=== PATIENT | female | born 1990 | race Caucasian/White ===

== ENCOUNTER 2016-08-16 09:46 | Emergency (ER) | payer SELFPAY ==
[2016-08-16 10:22] VITALS: BP 126/62
[2016-08-16 11:09] LABS: Basophils % (Auto) 0.3 % (0.0-1.8); Eosinophils % (Auto) 0.2 % (0.0-4.3); Hemoglobin 12.5 gm/dl (10.1-14.3); Mean Corpuscular HGB Conc 31 % (30-34); Mean Corpuscular Hemoglobin 29 pg (28-32); Mean Corpuscular Volume 93 fl (79-97); Platelet Count 236 K/mm3 (140-440); Red Cell Distribution Width 14.9 % (13.2-15.2); White Blood Count 14.9 K/mm3 (4.5-11.0)
[2016-08-16 11:21] LABS: Bacteria,Urine 1+ /HPF (Negative); Bilirubin,Urine NEG (Negative); Blood,Urine LG (Negative); Ketones,Urine NEG (Negative); Leukocyte Esterase,Urine NEG (Negative); Mucus,Urine 3+ /HPF; Nitrite,Urine POS (Negative)
[2016-08-16 11:22] LABS: RBC,Urine > 182.0 /HPF (0.0-6.0)
[2016-08-16 12:29] LABS: Amylase 73 units/L (27-131); Anion Gap 18 mmol/L; Blood Urea Nitrogen 7 mg/dL (7-17); Calcium 9.2 mg/dL (8.4-10.2); Carbon Dioxide 30 mmol/L (22-30); Chloride 96.6 mmol/L (98-107); Glucose 97 mg/dL (65-100); Lipase 40 units/L (13-60); Potassium 4.5 mmol/L (3.6-5.0); Sodium 140 mmol/L (137-145)
[2016-08-16] MEDS ORDERED: TORADOL IV ONE (13:17)
[2016-08-16] MEDS ORDERED: NACL ONE (13:29)
--- NOTE | 2016-08-16 13:34 | Emergency Department Report ---
HPI - General Chief Complaint: Abdominal Pain Time Seen by Provider: 08/16/16 13:11 - HPI HPI: Chief complaint: Right upper quadrant pain HPI: Patient is 25-year-old female states for the last 5-6 days she's been having gradually worsening right upper quadrant pain. Patient denies nausea vomiting diarrhea or fever. Patient states it increases with movement. Patient is currently on her menstrual cycle. Patient denies any abdominal surgeries. And patient has no prior medical history. Mode of arrival: [EMS] Source: [Patient] Began: 5-6 days Duration: See above Context: See above Quality: Sharp Severity: 10 out of 10 Improved with: Nothing Worsened with: Movement Associated signs and symptoms: See above ED Past Medical Hx - Past Medical History Previous Medical History?: No - Surgical History Past Surgical History?: No - Social History Smoking Status: Current Every Day Smoker Substance Use Type: Alcohol, Non Opiate Pain - Medications Home Medications: Home Medications Medication Instructions Recorded Confirmed Last Taken Type Ketorolac [Toradol] 10 mg PO Q6H PRN #14 tablet 08/16/16 Unknown Rx ED Review of Systems ROS: Stated complaint: ABD PAIN Other details as noted in HPI ROS Constitutional: No fever ENT: No uri symptoms Cardiovascular: No chest pain Respiratory: No sob or cough GI: No nausea vomiting or diarrhea : No dysuria frequency or urgency, Skin: No rash Neuro: No focal weakness or numbness Psych: No depression Fidencio/lymph: No edema Physical Exam - Physical Exam Vital Signs: Vital Signs 08/16/16 10:10 Temperature 98.9 F Pulse Rate 83 Respiratory 18 Rate Blood Pressure 126/62 O2 Sat by Pulse 96 Oximetry Physical Exam: GENERAL: The patient is well-developed well-nourished. HEENT: Normocephalic. Atraumatic. Extraocular motions are intact. Patient has moist mucous membranes. NECK: Supple. No meningitic signs are noted. There is no adenopathy noted. CHEST/LUNGS: Clear to auscultation. There is no respiratory distress noted. HEART/CARDIOVASCULAR: Regular. There is no tachycardia. There is no gallop rub or murmur. ABDOMEN: Abdomen is soft, tender right upper quadrant. Patient has normal bowel sounds. There is no abdominal distention. Patient's pain significantly increased when she tried to sit up or roll over. SKIN: There is no rash. There is no edema. There is no diaphoresis. NEURO: The patient is awake, alert, and oriented. The patient is cooperative. The patient has no focal neurologic deficits. The patient has normal speech. MUSCULOSKELETAL: There is no tenderness or deformity. There is no limitation range of motion. There is no evidence of acute injury. ED Course Vital Signs 08/16/16 10:10 Temperature 98.9 F Pulse Rate 83 Respiratory 18 Rate Blood Pressure 126/62 O2 Sat by Pulse 96 Oximetry ED Medical Decision Making - Lab Data Result diagrams: 08/16/16 10:34 08/16/16 12:00 Laboratory Tests 08/16/16 10:37 Urine HCG, Qual Negative - Radiology Data Radiology results: report reviewed (CT abdomen shows 2 heterogeneous enhancing nodular lesions in the right hepatic lobe measuring 2.2 and 1.0 cm. Further evaluation with contrast enhanced MRI is recommended. Shoddy reactive lymph nodes are noted. No appendicitis. Right upper quadrant ultrasound shows the lesions to possibly be atypical hemangiomas.) Critical care attestation.: If time is entered above; I have spent that time in minutes in the direct care of this critically ill patient, excluding procedure time. ED Disposition Clinical Impression: Right upper quadrant pain, Liver lesion, right lobe Disposition: DISCHARGED TO HOME OR SELFCARE Is pt being admited?: No Does the pt Need Aspirin: No Condition: Stable Instructions: Abdominal Pain (ED) Additional Instructions: There are several small lesions to your liver that may be benign hemangiomas. The radiologist however recommends that she have an MRI to evaluate them further. There is nothing acute on your tests. I'm going to give you a primary care doctor to follow-up with as well as a evening anchor. Prescriptions: Ketorolac [Toradol] 10 mg PO Q6H PRN #14 tablet PRN Reason: Pain Referrals: PRIMARY CARE, [Primary Care Provider] - 3-5 Days Time of Disposition: 16:22
--- NOTE | 2016-08-16 14:16 | Cat Scan Report ---
FINAL REPORT PROCEDURE: CT ABDOMEN PELVIS W CON TECHNIQUE: Computerized axial tomography of the abdomen and pelvis was performed after the IV injection of iodinated nonionic contrast. HISTORY: abdominal pain COMPARISON: No prior studies are available for comparison. FINDINGS: In the anterior right hepatic lobe there is a heterogeneous mixed hyperdense and hypodense lesion measuring 2.2 cm in diameter. This does not appear to be an hemangioma given the central high-density and peripheral hypodensity. A 2nd similar lesion is seen on image 32 of series 3 in the right upper lobe posteriorly measuring 1 cm in diameter. Further evaluation with contrast-enhanced MRI is recommended better describe the lesions. Spleen is normal in size. Gallbladder and pancreas appear normal. Adrenal glands and abdominal aorta are normal in size. No renal lesions are seen. Normal appendix is seen follicles are seen in the ovaries. Trace low-density free pelvic fluid is likely physiologic. Bladder appears normal. No constipation or bowel obstruction is seen. Shotty reactive mesenteric lymph nodes are seen. Mild increased small bowel air within nondilated loops may be swallowed air but consideration should be given to enteritis given the mesenteric lymph nodes. IMPRESSION: Two heterogeneously enhancing nodular lesions are seen in the right hepatic lobe measuring 2.2 and 1.0 cm. Further evaluation with contrast-enhanced MRI is recommended, as a lesions do not appear to be typical hemangioma. Possible mild changes of enteritis are seen.
--- NOTE | 2016-08-16 15:17 | Ultrasound Report ---
FINAL REPORT PROCEDURE: US ABDOMEN LIMITED TECHNIQUE: Real-time sonography was performed of the right upper quadrant of the abdomen with image documentation. CPT 83803 HISTORY: ruq pain COMPARISON: CT exam from the same day FINDINGS: Visualized portions of the pancreas display no abnormalities. Proximal abdominal aorta is normal in size. Right kidney measures 11.0 cm in length and displays no abnormalities. 3 hyperechoic liver lesions are seen measuring 2.9, 0.9, and 1.3 cm in greatest dimension. While the lesions appear distinct, the borders of the larger lesion appears slightly irregular. Hemangioma could possibly cause a similar appearance but other liver lesions cannot be completely excluded given the CT appearance. No evidence of cholelithiasis or cholecystitis is seen. Common bile duct is normal in size. IMPRESSION: Three hyperechoic lesions are seen in the liver measuring 2.9, 0.9, and 1.3 cm in greatest dimension. Findings could possibly represent atypical hemangioma given the ultrasound appearance. However, followup contrast-enhanced MRI using hemangioma protocol is recommended to better describe the lesions.
[2016-08-16 15:55] LABS: Alanine Aminotransferase 79 units/L (7-56); Albumin 3.8 g/dL (3.9-5); Albumin/Globulin Ratio 0.9 %; Alkaline Phosphatase 93 units/L (35-129); Bilirubin,Total 0.3 mg/dL (0.1-1.2); Lipase 49 units/L (13-60); Total Protein 7.9 g/dL (6.3-8.2)
[2016-08-16 16:04] LABS: Bilirubin,Direct < 0.2 mg/dL (0-0.2); Bilirubin,Indirect 0.1 mg/dL
== END 2016-08-16 17:22 | disposition home or self-care (01) ==
LOC: ED 09:46
DX: R10.11 Right upper quadrant pain (principal); K76.9 Liver disease, unspecified; F17.200 Nicotine dependence, unspecified, uncomplicated
CPT/HCPCS: 36415; 74177; 76705; 80048; 80074; 81001; 81025; 82150; 83690; 85025; 86850; 86900; 86901; 96374; 99284; J1885; Q9967